=== PATIENT | male | born 1980 | race Two or more races ===

== ENCOUNTER 2018-10-17 02:15 | Emergency (ER) | payer OTHER ==
[~2018-10-17] VITALS: Ht 167.6 cm; Wt 72.6 kg
[2018-10-17 02:17] VITALS: Ht 167.6 cm; Wt 72.6 kg
[2018-10-17 03:29] VITALS: BP 114/55
== END 2018-10-17 03:48 | disposition other institution (70) ==
LOC: ED 02:15
DX: Z02.89 Encounter for other administrative examinations (principal)